=== PATIENT | female | born 1965 | race African-American/Black ===

== ENCOUNTER 2021-05-08 23:11 | Emergency (ER) | payer OTHER ==
[~2021-05-08] VITALS: Ht 162.6 cm; Wt 91.0 kg
[2021-05-08] MEDS ORDERED: MORPHINE SULFATE 4 MG/ML CPJ (NOT FOR IM USE) IV ONE (23:45)
[2021-05-09 00:12] LABS: BASOPHILS % 1.3 % (0.0-2.0); HEMATOCRIT. 37.5 % (36.0-48.0); HEMOGLOBIN. 12.4 g/dL (12.0-16.0); MEAN CORPUSCULAR HEMOGLOBIN 27.7 pg (28.0-32.0); MEAN CORPUSCULAR VOLUME 83.7 fL (81.0-99.0); MEAN PLATELET VOLUME 6.9 fl (7.4-10.4); MONOCYTES % 7.2 % (2.0-8.0); NEUTROPHILS % 46.5 % (40.0-76.0); PLATELET 387 x1000/uL (130-400); RED BLOOD CELL COUNT 4.48 mill/uL (4.2-5.4); RED CELL DISTRIBUTION WIDTH 14.4 % (11.6-14.6)
[2021-05-09 00:20] LABS: INR 0.9
[2021-05-09 00:22] LABS: CHLORIDE 113 mEq/L (98-107)
[2021-05-09] MEDS ORDERED: LIDOCAINE 5% PATCH TOP SCH (01:45)
[2021-05-09] MEDS ORDERED: KETOROLAC 30MG/ML VIAL IV ONE (01:45)
[2021-05-09 02:07] VITALS: BP 109/72
[2021-05-09] MEDS ORDERED: TOPUD PO (02:26)
[2021-05-09] MEDS ORDERED: LIDO1ADH5 TP (02:26)
[2021-05-09] MEDS ORDERED: IBUP-2028 MT (02:26)
[2021-05-09] MEDS ORDERED: METH-653 MT (02:26)
== END 2021-05-09 04:00 | disposition home or self-care (01) ==
LOC: ER 23:11
DX: M25.552 Pain in left hip (principal); M25.511 Pain in right shoulder; W18.39XA Other fall on same level, initial encounter; Y93.89 Activity, other specified; Y92.89 Other specified places as the place of occurrence of the external cause; Y99.8 Other external cause status; J44.9 Chronic obstructive pulmonary disease, unspecified; E11.9 Type 2 diabetes mellitus without complications; M79.7 Fibromyalgia; Z88.0 Allergy status to penicillin; Z79.899 Other long term (current) drug therapy
CPT/HCPCS: 36415; 70450; 71045; 72125; 73030; 73502; 73552; 73564; 80053; 85025; 85610; 96374; 96375; 99285; J1885; J2270